=== PATIENT | male | born 1955 | race Caucasian/White ===

== ENCOUNTER 2016-07-28 16:07 | Emergency (ER) | payer MEDICAID ==
[2016-07-28 16:18] VITALS: BP 194/101
--- NOTE | 2016-07-28 16:59 | ED Physician Documentation ---
PD HPI LOWER EXT INJURY - Stated complaint Stated Complaint: AMP STUMP PAIN L LEG - Chief complaint Chief Complaint: Ext Problem - History obtained from History obtained from: Patient - History of Present Illness PD HPI LOW EXT INJURY LOCATION: Left (Do to an injury at age 18 he has a BKA on the left, complains of increased stump pain for last few days after increased activity. No specific injury recently.), Other Review of Systems Constitutional: denies: Fever, Chills Cardiac: denies: Chest pain / pressure, Palpitations GI: denies: Abdominal Pain, Nausea PD PAST MEDICAL HISTORY - Past Medical History Cardiovascular: High cholesterol Endocrine/Autoimmune: Type 2 diabetes Psych: Anxiety Musculoskeletal: Osteoarthritis - Past Surgical History Past Surgical History: Yes - Present Medications Home Medications: Ambulatory Orders Medication Instructions Recorded Confirmed Fenofibrate [Tricor] 134 mg PO QD 10/15/12 12/26/14 Simvastatin 40 mg PO DAILY 10/15/12 12/26/14 HYDROcodone/ACET 10/325 [[place] 10 1 each PO Q6H PRN 12/26/14 12/26/14 mg/325 mg] Hydrocodone/Acetaminophen [[place] 1 each PO TID PRN #12 tablet 12/26/14 10-325 Tablet] LORazepam INTENSOL [Ativan 1 mg PO Q6-8H PRN 12/26/14 12/26/14 Intensol] - Allergies Allergies/Adverse Reactions: Allergies Allergy/AdvReac Type Severity Reaction Status Date / Time Sulfa (Sulfonamide AdvReac Mild Emesis Verified 12/26/14 09:06 Antibiotics) - Social History Does the pt smoke?: No Smoking Status: Never smoker Does the pt drink ETOH?: Yes Does the pt have substance abuse?: No - Immunizations Immunizations are current?: Yes - POLST Patient has POLST: No PD ED PE NORMAL - Vitals Vital signs reviewed: Yes - General General: Alert and oriented X 3, No acute distress - Extremities Extremities: Other (BKA without skin breakdown or TTP under the prosthetic) - Neuro Neuro: Alert and oriented X 3, Normal speech Results - Vitals Vitals: Vital Signs - 24 hr 07/28/16 16:16 Temperature 36.7 C Heart Rate 97 Respiratory 18 Rate Blood Pressure 194/101 H O2 Saturation 98 Oxygen O2 Source Room air PD MEDICAL DECISION MAKING - ED course ED course: Review of the [employer] system show frequent emergency department visits, 12 far this year, mostly between [facility] in [place]. Also over 3000 controlled substance pills from a variety of prescribers and care plan suggesting no narcotics from the emergency department. Departure - Departure Disposition: Home, Self Care Clinical Impression: Chronic leg pain Condition: Good Record reviewed to determine appropriate education?: Yes Instructions: ED Chronic Pain Management Comments: Return for any acute emergency medical conditions, otherwise coordinate with your primary care physician for pain management. Your blood pressure was elevated today on check in to the emergency department. This does not mean that you have hypertension, it is a common phenomenon to check into the emergency department and have elevated blood pressure. I recommend that you see your primary care physician within the week to have it rechecked when you're feeling better.
== END 2016-07-28 17:05 | disposition home or self-care (01) ==
LOC: ED 16:07
DX: M79.605 Pain in left leg (principal); G89.29 Other chronic pain; Z89.512 Acquired absence of left leg below knee; R03.0 Elevated blood-pressure reading, without diagnosis of hypertension; E11.9 Type 2 diabetes mellitus without complications
CPT/HCPCS: 99282; 99283